=== PATIENT | female | born 1975 | race African-American/Black ===

== ENCOUNTER 2019-05-10 22:24 | Emergency (ER) | payer MEDICAID ==
[~2019-05-10] VITALS: Ht 175.3 cm; Wt 74.8 kg
[2019-05-10 22:29] VITALS: Ht 175.3 cm; Wt 74.8 kg
[2019-05-11 00:09] LABS: CALCIUM 9.4 mg/dL (8.5-10.1); CARBON DIOXIDE 32.8 mmol/L (21-32); CREATININE SERUM 1.2 mg/dL (0.6-1.0); POTASSIUM SERUM 4.2 mmol/L (3.5-5.1)
[2019-05-11 00:12] LABS: BASOPHIL % 0.4 % (0-2); PLATELET COUNT 225 x10^3mcL (130-400); RED CELL DISTRIBUTION WIDTH 14.3 % (11.5-14.5)
[2019-05-11 00:15] LABS: ALBUMIN 3.7 g/dL (3.4-5.0); BILIRUBIN TOTAL 0.7 mg/dL (0.20-1.00); TOTAL PROTEIN, SERUM 8.3 g/dL (6.4-8.2)
[2019-05-11 03:35] LABS: AMPHETAMINE QUAL UR NONE DETECTED (See below)
[2019-05-11 05:14] VITALS: BP 135/81
== END 2019-05-11 05:14 | disposition home or self-care (01) ==
LOC: ED 22:24
PROVIDERS: Emergency Medicine
DX: R07.89 Other chest pain (principal); R42 Dizziness and giddiness; G47.00 Insomnia, unspecified; F43.20 Adjustment disorder, unspecified; Z88.0 Allergy status to penicillin; Z88.5 Allergy status to narcotic agent; Z88.8 Allergy status to other drugs, medicaments and biological substances; Z98.890 Other specified postprocedural states
CPT/HCPCS: 85378; J1885; J7030; Q0092; Q9967

== ENCOUNTER 2019-08-03 21:26 | Emergency (ER) | payer MEDICAID ==
[~2019-08-03] VITALS: Ht 175.3 cm; Wt 85.3 kg
[2019-08-03 21:29] VITALS: BP 143/99; Ht 175.3 cm; Wt 85.3 kg
== END 2019-08-03 23:16 | disposition left against medical advice (07) ==
LOC: ED 21:26
DX: Z53.21 Procedure and treatment not carried out due to patient leaving prior to being seen by health care provider (principal)